=== PATIENT | male | born 2005 | race Caucasian/White ===

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

== ENCOUNTER 2023-06-14 15:29 | Emergency (ER) | payer MEDICAID, SELFPAY ==
[2022-06-30 16:34] VITALS: BP 117/76; BMI 25.9
--- NOTE | 2023-06-14 15:34 | XRR_ITS ---
PROCEDURE INFORMATION: Exam: XR Left Foot Exam date and time: 06/14/2023 4:06 PM Age: 17 years old Clinical indication: Pain; Foot; Left TECHNIQUE: Imaging protocol: Radiologic exam of the left foot. Views: 3 or more views. COMPARISON: No relevant prior studies available. FINDINGS: Bones/joints: No fracture or other acute abnormality. Joint spaces are normal. There is a rather prominent plantar arch. Soft tissues: Normal. XR/XR foot LT min 3V* [id number] IMPRESSION: No acute findings.
[2023-06-14 16:11] VITALS: BP 135/85; PULSE 71; RESP 18; TEMP 36.9; O2SAT 97; BMI 24.3
--- NOTE | 2023-06-14 16:42 | W.ED.LOWEXIN ---
HPI - Extremity Injury (Lower) General: Chief Complaint: Extremity Injury, Lower Stated Complaint: Left Foot injury Time Seen by Provider: 06/14/23 16:35 Source: patient Mode of arrival: ambulatory Limitations: no limitations History of Present Illness: Patient is a 17-year-old male presents to ED today for evaluation of left foot injury that he sustained yesterday after he was chasing his dog through the yard and on gravel. He states he is not sure exactly how he injured it but he is having pain throughout the plantar medial aspect of the foot. He is ambulatory here without assistance. He does report a small wound/cut near his great toe. Tetanus is up-to-date. No other injuries or complaints at this time. MD complaint: foot injury Onset (ago): day(s) (yesterday) Injury: Left: foot Place: home Severity: moderate Relieving factors: immobilization Exacerbating factors: weight bearing Context: running Associated symptoms: Reports no associated symptoms Other symptoms: none Review of Systems Musc: Reports: extremity pain (L foot); Denies: extremity swelling, joint pain or joint swelling Neuro: Denies: numbness in extremities or sensory changes PFSH ED PFSH: Medical History Major depressive disorder, single episode, moderate Housing instability, currently housed, at risk for homelessness Generalized anxiety disorder Psychiatric care Family History Grandmother Cancer unknown Other ADHD Generalized anxiety disorder MDD (major depressive disorder), recurrent episode, severe Denies family history of Diabetes CAD (coronary artery disease) Clotting disorder Dementia Hyperlipidemia Psychiatric illness Chronic kidney disease (CKD) Anesthesia complication Bleeding disorder Lung disease Hypertension Stroke Social History Smoking and tobacco/nicotine status: never used tobacco/nicotine Second hand smoke exposure: Yes Alcohol intake: never Substance/Drug Use: never Adopted: No Caregiver/support person: No Lives independently: Yes Household members: none Housing: Manufactured/Mobile home Marital status: Single Number of children: 0 Highest education level completed: 9th Grade Education level details: wanting to obtain GED service: No Current occupational status: unemployed Current occupation: currently searching for employment Current occupational exposures/hazards: No Pets and animals: No Leisure activites: reading and other Leisure activities details: play on phone Do you think of yourself as: Straight/Heterosexual Current gender identity: Male Yue/Mosque: None Agree to transfusion: Yes Physical Exam Const: COMMON NORMALS: no acute distress, patient oriented x3, no limitations, alert and well nourished Extremity: COMMON NORMALS: full ROM, capillary refill normal, no clubbing, cyanosis or edema, no calf tenderness and no pedal edema GENERAL: Yes normal exam except as noted LEFT LOWER EXTREMITY: Yes foot & digits Left foot and digits: Yes inspection (feet are very dirty in appearance), Yes palpation (TTP medial foot and heel), Yes ROM (normal) and Yes neurovascular exam (normal) OTHER: small cuts vs chronic cracks to plantar aspect of foot; all very superficial; small skin flap/avulsion to distal great toe that does not require repair; no obvious bony tenderness or deformity Neuro: COMMON NORMALS: patient oriented x3, moves all extremities, no focal motor deficits and no sensory deficits noted SENSORIUM/ORIENTATION: Yes alert Course Vital Signs: Vital signs: Vital Signs Temperature 98.4 F 06/14/23 16:11 Pulse Rate 71 06/14/23 16:11 Respiratory Rate 18 06/14/23 16:11 Blood Pressure 135/85 06/14/23 16:11 Pulse Oximetry 97 06/14/23 16:11 Oxygen Delivery Me thod Room Air 06/14/23 16:11 MDM - Extremity Injury (Lower) Medical Decision Making XR negative for bony injury or foreign body. Recommend thorough cleansing of the foot and monitoring for signs of infection. He is requesting crutches which will be provided. Return ED precautions given. Otherwise he can follow-up with primary care in 1 to 2 weeks if symptoms do not seem to be improving. Lab Data Radiology Impressions Foot X-Ray 06/14/23 15:34 IMPRESSION: No acute findings. All radiology interpretation(s) finalized by discharge Discharge Plan Discharge Patient Disposition: Home Clinical Impression: Injury of foot, left Qualifiers: Encounter type: initial encounter Qualified Code(s): S99.922A - Unspecified injury of left foot, initial encounter Condition: Stable Prescriptions: No Action trazodone 100 mg tablet 100 mg PO .HS 30 Days Qty: 30 1RF quetiapine 50 mg tablet extended release 24 hr 100 mg PO BEDTIME 30 Days Qty: 60 1RF hydroxyzine pamoate 25 mg capsule 50 mg PO Q6H PRN (Reason: Anxiety) 30 Days Qty: 120 1RF fluoxetine 20 mg capsule 20 mg PO DAILY 30 Days Qty: 30 1RF bupropion HCl [Wellbutrin XL] 300 mg tablet extended release 24 hr 300 mg PO QAM 30 Days Qty: 30 1RF bupropion HCl 150 mg tablet extended release 24 hr 150 mg PO DAILY 30 Days Qty: 30 1RF Rx Instructions: Take with 300 mg tab for 450 mg daily total methylphenidate HCl 10 mg tablet 10 mg PO TID 30 Days Qty: 90 0RF Discharge Orders: Discharge ED (Routine); Ordered 06/14/23 Ordered By: Sarah Duvall Activity Restrictions/Additional Instructions: As we discussed you may begin soaking the foot in warm soapy water to help clean and irrigate any small cuts. Your x-ray was negative for acute fracture or foreign bodies. You have been given a set of crutches to help with weightbearing. You may ice and elevate the extremity. You may take [id number] analgesics such as Motrin or Tylenol as needed for pain. Coding Level of Care Code ED Community Planning Technician for Yessenia Pettit
== END 2023-06-14 16:57 | disposition home or self-care (01) ==
PROVIDERS: Emergency Provider Physician Assistant
DX: S91.312A Laceration without foreign body, left foot, initial encounter (principal); Z77.22 Contact with and (suspected) exposure to environmental tobacco smoke (acute) (chronic); X58.XXXA Exposure to other specified factors, initial encounter
CPT/HCPCS: 73630; 99283; E0114

== ENCOUNTER 2023-07-13 06:49 | Emergency (ER) | payer MEDICAID, SELFPAY ==
[2022-06-30 16:34] VITALS: BP 117/76; BMI 25.9
--- NOTE | 2023-07-13 06:57 | XRR_ITS ---
PROCEDURE INFORMATION: Exam: XR Left Hand Exam date and time: 07/13/2023 7:07 AM Age: 17 years old Clinical indication: Injury or trauma; Blunt trauma (contusions or hematomas); Left; Injury details: Punched a wall. Swelling to hand TECHNIQUE: Imaging protocol: Radiologic exam of the left hand. Views: 3 or more views. COMPARISON: No relevant prior studies available. FINDINGS: Bones/joints: Suggestion of recent, mildly displaced hamate body fracture. Soft tissues: Suggestion of mild dorsal wrist soft tissue swelling. XR/XR hand LT min 3V* [id number] IMPRESSION: Evidence of recent mildly displaced hamate body
[2023-07-13 07:03] VITALS: BP 140/84; PULSE 70; RESP 16; TEMP 36.4; O2SAT 96; BMI 25.8
--- NOTE | 2023-07-13 08:04 | ED_ITS ---
HPI - Extremity Problem General: Chief complaint: Extremity Injury, Upper Stated complaint: left hand pain Time Seen by Provider: 07/13/23 06:56 Source: patient Mode of arrival: ambulatory History of Present Illness: 17-year-old male who punched a wall yest erday and has pain and swelling in his left hand since. No other injury. No abrasions no lacerations. MD Complaint: extremity pain and extremity swelling Onset (ago): day(s) (1) Pain Consistency: constant Location: left Radiation: distal Relieving factors: elevation Exacerbating factors: range of motion and palpation Associated symptoms: Deny chest pain, fever(s) or rash Review of Systems Const: Denies: fever(s) or chills Card: Denies: chest pain Resp: Denies: dyspnea GI: Denies: abdominal pain : Denies: dysuria, urinary frequency or urinary urgency Musc: Denies: neck pain or back pain Skin/Breast: Denies: rash PFSH ED PFSH: Medical History Major depressive disorder, single episode, moderate Housing instability, currently housed, at risk for homelessness Generalized anxiety disorder Psychiatric care Family History Grandmother Cancer unknown Other ADHD Generalized anxiety disorder MDD (major depressive disorder), recurrent episode, severe Denies family history of Diabetes CAD (coronary artery disease) Clotting disorder Dementia Hyperlipidemia Psychiatric illness Chronic kidney disease (CKD) Anesthesia complication Bleeding disorder Lung disease Hypertension Stroke Social History Smoking and tobacco/nicotine status: never used tobacco/nicotine Second hand smoke exposure: Yes Alcohol intake: never Substance/Drug Use: never Adopted: No Caregiver/support person: No Lives independently: Yes Household members: none Housing: Manufactured/Mobile home Marital status: Single Number of children: 0 Highest education level completed: 9th Grade Education level details: wanting to obtain GED service: No Current occupational status: unemployed Current occupation: currently searching for employment Current occupational exposures/hazards: No Pets and animals: No Leisure activites: reading and other Leisure activities details: play on phone Do you think of yourself as: Straight/Heterosexual Current gender identity: Male Yue/Christianity: None Agree to transfusion: Yes Physical Exam Const: GENERAL APPEARANCE: cooperative and comfortable ORIENTATION/CONSCIOUSNESS: Yes awake, Yes oriented to person, Yes oriented to place and Yes oriented to time HENMT: COMMON NORMALS: normocephalic, atraumatic and hearing grossly normal bilaterally HEAD & SCALP: normocephalic and atraumatic Resp: COMMON NORMALS: normal respiratory effort, No retractions, No use of accessory muscles and clear to auscultation bilaterally AUSCULTATION: clear to auscultation bilaterally Cardio: COMMON NORMALS: regular rate, regular rhythm and No murmurs present (Cardio) RATE: regular rate RHYTHM: regular rhythm Extremity: COMMON NORMALS: normal to inspection, capillary refill normal, no clubbing, cyanosis or edema, no calf tenderness and no pedal edema OTHER: Moderate swelling of the hand in the region of the carpal joints. No pain at the wrist with palpation of the all distal ulnar styloid or distal radius. No pain in the anatomical snuffbox. Neuro: SENSORIUM/ORIENTATION: Yes oriented to person, Yes oriented to place and Yes oriented to time Skin: COMMON NORMALS: no rashes or lesions noted GENERAL SKIN EXAM: no rashes or lesions noted Course Vital Signs: Vital signs: Vital Signs Temperature 97.5 F L 07/13/23 07:03 Pulse Rate 70 07/13/23 07:03 Respiratory Rate 16 07/13/23 07:03 Blood Pressure 140/84 07/13/23 07:03 Pulse Oximetry 96 07/13/23 07:03 Oxygen Delivery Me thod Room Air 07/13/23 07:03 MDM - Extremity (Nontraumatic) Medical Decision Making X-ray read as evidence of mildly displaced hamate body fracture. Placed in a splint and have patient follow-up with orthopedics Medical Records I reviewed the patient's medical records. Lab Data I reviewed the patient's lab results. Radiology Impressions Hand X-Ray 07/13/23 06:57 IMPRESSION: Evidence of recent mildly displaced hamate body All radiology interpretation(s) finalized by discharge Discharge Plan Discharge Patient Disposition: Home Clinical Impression: Fracture of hamate bone of left wrist Condition: Stable Prescriptions: New diclofenac sodium 75 mg tablet,delayed release (DR/EC) 75 mg PO Q12H PRN (Reason: pain) Qty: 20 0RF No Action trazodone 100 mg tablet 100 mg PO .HS 30 Days Qty: 30 1RF quetiapine 50 mg tablet extended release 24 hr 100 mg PO BEDTIME 30 Days Qty: 60 1RF hydroxyzine pamoate 25 mg capsule 50 mg PO Q6H PRN (Reason: Anxiety) 30 Days Qty: 120 1RF fluoxetine 20 mg capsule 20 mg PO DAILY 30 Days Qty: 30 1RF bupropion HCl [Wellbutrin XL] 300 mg tablet extended release 24 hr 300 mg PO QAM 30 Days Qty: 30 1RF bupropion HCl 150 mg tablet extended release 24 hr 150 mg PO DAILY 30 Days Qty: 30 1RF Rx Instructions: Take with 300 mg tab for 450 mg daily total methylphenidate HCl 10 mg tablet 10 mg PO TID 30 Days Qty: 90 0RF Discharge Orders: Discharge ED (Routine); Ordered 07/13/23 Ordered By: Meliton Fuller Discharge Diet: Usual diet Discharge Activity: Limit activity as instructed Patient Instructions: Opioid Safety, Pain Management Activity Restrictions/Additional Instructions: Thank you for choosing [facility] for your healthcare needs today. Please realize this is an emergency room and that we are providing you with a medical screening exam and this may not be complete and all inclusive of all the testing and or work up that you may need to determine your ailment or severity of your illness. It is very important that you follow up as instructed or that you return to the Emergency Department should you have concerns or if your condition changes or worsens in any way. You were seen today for complaints of left wrist pain after punching a wall. There was a questionable fracture of the small bone in your wrist called the hamate bone. Recommend no use of the left hand and remain in the splint until you follow-up with orthopedics. Case management will make arrangements for follow-up with the orthopedic clinic. Ice and elevate the hand for comfort you can use diclofenac as needed for pain Coding Level of Care Code ED Airport Maintenance Laborer for Yessenia Pettit
[2023-07-13] MEDS: HYDROcodone-acetaminophen 5-325 mg Tablet 1 TAB PO (08:39)
--- NOTE | 2023-07-14 07:59 | DCPLANNER ---
Message sent to Ortho for a follow up appointment LT wrist hamate fracture
== END 2023-07-13 09:02 | disposition home or self-care (01) ==
PROVIDERS: Emergency Provider Family Medicine
DX: S62.142A Displaced fracture of body of hamate [unciform] bone, left wrist, initial encounter for closed fracture (principal); Z77.22 Contact with and (suspected) exposure to environmental tobacco smoke (acute) (chronic); W22.09XA Striking against other stationary object, initial encounter
CPT/HCPCS: 29125; 73130; 99283

== ENCOUNTER 2024-03-18 19:12 | Emergency (ER) | payer SELFPAY ==
[2022-06-30 16:34] VITALS: BP 117/76; BMI 25.9
--- NOTE | 2024-03-18 19:14 | XRR_ITS ---
PROCEDURE INFORMATION: Exam: XR Left Wrist Exam date and time: 03/18/2024 7:29 PM Age: 18 years old Clinical indication: Injury or trauma; Fall; Blunt trauma (contusions or hematomas); Wrist; Left TECHNIQUE: Imaging protocol: Radiologic exam of the left wrist. Views: 3 or more views. COMPARISON: CR ([facility], ) 03/18/2024 7:29 PM FINDINGS: Bones/joints: No evidence of fracture or subluxation. Radiocarpal articulation and carpal rows are grossly intact. Soft tissues: Mild soft tissue edema. XR/XR wrist LT min 3V* [id number] IMPRESSION: 1. No evidence of fracture or subluxation.
--- NOTE | 2024-03-18 19:14 | XRR_ITS ---
PROCEDURE INFORMATION: Exam: XR Left Elbow Exam date and time: 03/18/2024 7:29 PM Age: 18 years old Clinical indication: Injury or trauma; Fall; Blunt trauma (contusions or hematomas); Elbow; Left TECHNIQUE: Imaging protocol: Radiologic exam of the left elbow. Views: 3 or more views. COMPARISON: CR ([facility], ) 03/18/2024 7:29 PM FINDINGS: Bones/joints: No evidence of fracture or subluxation. No evidence of joint effusion. Radiocapitellar alignment is maintained. Soft tissues: Grossly unremarkable. XR/XR elbow LT min 3V* [id number] IMPRESSION: 1. No evidence of fracture or subluxation.
[2024-03-18 19:17] VITALS: BP 125/82; PULSE 80; RESP 17; TEMP 36.9; O2SAT 97; BMI 31.5
[2024-03-18] MEDS: ketorolac 60 mg/2 mL INJ IM (19:36)
--- NOTE | 2024-03-18 19:39 | W.ED.FALL ---
HPI - Fall General: Chief Complaint: Fall Stated Complaint: Left Wrist and Elbow Injury Time Seen by Provider: 03/18/24 19:22 History of Present Illness: Johnathon is a [id number] 18-year-old male that presents to the emergency department with complaints of left wrist and left elbow pain. Patient reports last night at about 7 PM he tripped. As he was falling he reached out for a metal chair but ended up striking his wrist across it and then landing on his left elbow. Patient denies striking his head or loss of consciousness. He developed left wrist pain with range of motion and elbow stiffness. He has no open wounds. He is neurovascularly intact. He has no prior injuries to this extremity. Related Data Previous Rx's Medication Instructions Recorded bupropion HCl 150 mg 24 hr tablet, 150 mg PO DAILY 30 days #30 tabs 12/03/22 extended release bupropion HCl 300 mg 24 hr tablet, 300 mg PO QAM 30 days #30 tabs 12/03/22 extended release (Wellbutrin XL) fluoxetine 20 mg capsule 20 mg PO DAILY 30 days #30 caps 12/03/22 hydroxyzine pamoate 25 mg capsule 50 mg (2 x 25 mg) PO Q6H PRN 12/03/22 Anxiety 30 days #120 caps methylphenidate HCl 10 mg tablet 10 mg PO TID 30 days #90 tabs 12/03/22 quetiapine 50 mg tablet,extended 100 mg (2 x 50 mg) PO BEDTIME 30 12/03/22 release 24 hr days #60 tabs trazodone 100 mg tablet 100 mg PO .HS 30 days #30 tabs 12/03/22 diclofenac sodium 75 mg 75 mg PO Q12H PRN pain #20 tabs 07/13/23 tablet,delayed release Allergies Allergy/AdvReac Type Severity Reaction Status Date / Time No Known Allergies Allergy Verified 03/18/24 19:21 Review of Systems General: Reports: 10 or more systems reviewed and unremarkable except in HPI and below PFSH ED PFSH: Medical History Major depressive disorder, single episode, moderate Housing instability, currently housed, at risk for homelessness Generalized anxiety disorder Psychiatric care Family History Grandmother Cancer unknown Other ADHD Generalized anxiety disorder MDD (major depressive disorder), recurrent episode, severe Denies family history of Diabetes CAD (coronary artery disease) Clotting disorder Dementia Hyperlipidemia Psychiatric illness Chronic kidney disease (CKD) Anesthesia complication Bleeding disorder Lung disease Hypertension Stroke Social History Smoking and tobacco/nicotine status: never used tobacco/nicotine Second hand smoke exposure: Yes Alcohol intake: never Substance/Drug Use: never Adopted: No Caregiver/support person: No Lives independently: Yes Household members: none Housing: Manufactured/Mobile home Marital status: Single Number of children: 0 Highest education level completed: 9th Grade Education level details: wanting to obtain GED service: No Current occupational status: unemployed Current occupation: currently searching for employment Current occupational exposures/hazards: No Pets and animals: No Leisure activites: reading and other Leisure activities details: play on phone Do you think of yourself as: Straight/Heterosexual Current gender identity: Male Yue/Anabaptism: None Agree to transfusion: Yes Physical Exam Const: COMMON NORMALS: no acute distress, patient oriented x3 and alert GENERAL APPEARANCE: cooperative ORIENTATION/CONSCIOUSNESS: Yes awake Neck/C-Spine: COMMON NORMALS: full ROM GENERAL: Yes normal visual inspection Resp: COMMON NORMALS: normal respiratory effort, No retractions and No use of accessory muscles EFFORT & INSPECTION: Yes able to speak in complete sentences and Yes symmetric chest movement Cardio: COMMON NORMALS: regular rate and Peripheral pulses 2+ throughout RATE: regular rate PERIPHERAL PULSES: Peripheral pulses 2+ throughout Extremity: COMMON NORMALS: normal to inspection NARRATIVE EXTREMITY EXAM: Uubd-[id number]-apoaoyht male. Patient reports pain at the wrist and elbow. Patient has full active range of motion of the left elbow although pain limits. He is able to flex and extend the wrist and range of motion the wrist. Patient is able to give a thumbs up, make an okay sign, cross fingers, abduct fingers against resistance, make a fist. Sensations intact throughout all distributions He has cap refill less than 3 seconds GENERAL: Yes normal exam except as noted Neuro: COMMON NORMALS: patient oriented x3 SENSORIUM/ORIENTATION: Yes alert CRANIAL NERVES: Yes CN normal except as noted Psych: COMMON NORMALS: mental status grossly normal, cooperative and activity/motor behavior normal Skin: COMMON NORMALS: no rashes or lesions noted, no wounds and turgor normal GENERAL SKIN EXAM: no rashes or lesions noted and turgor normal Course Vital Signs: Vital signs: Vital Signs Temperature 98.4 F 03/18/24 19:17 Pulse Rate 80 03/18/24 19:17 Respiratory Rate 17 03/18/24 19:17 Blood Pressure 125/82 03/18/24 19:17 Pulse Oximetry 97 03/18/24 19:17 Oxygen Delivery Me thod Room Air 03/18/24 19:17 MDM - Fall Medical Decision Making Patient is a 18-year-old [id number] male who presents to the emergency department with left wrist and elbow pain. Patient with complaint a XR of the left wrist and elbow to rule out fracture, fracture dislocation. Pain was treated with Toradol. After Toradol injection, patient's exam improved greatly. He reports that he is feeling much better. Patient's XR imaging of the elbow and the wrist revealed no acute fractures. I reviewed these findings with the patient. Unfortunately, the radiologist has not been able to read the imaging as of yet. I told the patient we will keep an eye out for the radiologist read and if there is read contradicted by interpretation we would reach out to him. Patient is agreeable with this plan. I did offer a prescription of Toradol or naproxen but he would prefer to use [id number] medications. XR interpretation done by ED provider, pending radiology final review Discharge Plan Discharge Patient Disposition: Home Clinical Impression: Acute wrist pain, Elbow pain, left Condition: Stable Prescriptions: No Action trazodone 100 mg tablet 100 mg PO .HS 30 Days Qty: 30 1RF quetiapine 50 mg tablet extended release 24 hr 100 mg PO BEDTIME 30 Days Qty: 60 1RF hydroxyzine pamoate 25 mg capsule 50 mg PO Q6H PRN (Reason: Anxiety) 30 Days Qty: 120 1RF fluoxetine 20 mg capsule 20 mg PO DAILY 30 Days Qty: 30 1RF bupropion HCl [Wellbutrin XL] 300 mg tablet extended release 24 hr 300 mg PO QAM 30 Days Qty: 30 1RF bupropion HCl 150 mg tablet extended release 24 hr 150 mg PO DAILY 30 Days Qty: 30 1RF Rx Instructions: Take with 300 mg tab for 450 mg daily total methylphenidate HCl 10 mg tablet 10 mg PO TID 30 Days Qty: 90 0RF diclofenac sodium 75 mg tablet,delayed release (DR/EC) 75 mg PO Q12H PRN (Reason: pain) Qty: 20 0RF Discharge Orders: Discharge ED (Routine); Ordered 03/18/24 Ordered By: Ursula Mays Referrals: Juan Manzanares MD [Physician] - Discharge Diet: Advance as tolerated Discharge Activity: Resume usual activity Patient Instructions: Elbow Sprain (ED), Wrist Sprain (ED), Opioid Safety, Pain Management Activity Restrictions/Additional Instructions: If you are not better in 3 to 5 days, follow-up with Dr. Manzanares your primary care provider Coding Level of Care Code ED Artificial Snow Making Machine Operator for Yessenia Pettit
== END 2024-03-18 20:43 | disposition home or self-care (01) ==
PROVIDERS: Emergency Provider Nurse Practitioner
DX: M25.532 Pain in left wrist (principal); M25.522 Pain in left elbow
CPT/HCPCS: 73080; 73110; 96372; 99284; J1885

== ENCOUNTER 2024-05-29 10:46 | Emergency (ER) | payer SELFPAY ==
[2022-06-30 16:34] VITALS: BP 117/76; BMI 25.9
[2024-05-29 10:55] VITALS: BP 120/74; PULSE 72; RESP 15; TEMP 36.7; O2SAT 99; BMI 31.4
--- NOTE | 2024-05-29 11:37 | ED_ITS ---
HPI - General Adult General: Chief complaint: Upper Respiratory Infection Stated complaint: SOB/throat swollen Time Seen by Provider: 05/29/24 11:36 Source: patient Mode of arrival: ambulatory Limitations: no limitations History of Present Illness: Patient is a 18-year-old male presents to ED today with a complaint of a sore throat over the past 5 to 6 days. Patient has not had any documented fevers. He is able to control his saliva and swallow liquids. He has no other URI-like symptoms. Has not noticed any neck swelling. Onset (ago): day(s) Location: mouth (throat) Severity: moderate Pain Consistency: constant Relieving factors: none Exacerbating factors: other (swallowing) Associated symptoms: Reports no associated symptoms; Deny chest pain, dyspnea, headache(s), malaise, nausea, rash or vomiting Treatments prior to arrival: none Related Data Previous Rx's Medication Instructions Recorded bupropion HCl 150 mg 24 hr tablet, 150 mg PO DAILY 30 days #30 tabs 12/03/22 extended release bupropion HCl 300 mg 24 hr tablet, 300 mg PO QAM 30 days #30 tabs 12/03/22 extended release (Wellbutrin XL) fluoxetine 20 mg capsule 20 mg PO DAILY 30 days #30 caps 12/03/22 hydroxyzine pamoate 25 mg capsule 50 mg (2 x 25 mg) PO Q6H PRN 12/03/22 Anxiety 30 days #120 caps methylphenidate HCl 10 mg tablet 10 mg PO TID 30 days #90 tabs 12/03/22 quetiapine 50 mg tablet,extended 100 mg (2 x 50 mg) PO BEDTIME 30 12/03/22 release 24 hr days #60 tabs trazodone 100 mg tablet 100 mg PO .HS 30 days #30 tabs 12/03/22 diclofenac sodium 75 mg 75 mg PO Q12H PRN pain #20 tabs 07/13/23 tablet,delayed release Allergies Allergy/AdvReac Type Severity Reaction Status Date / Time No Known Allergies Allergy Verified 05/29/24 10:58 Review of Systems Const: Denies: fever(s), chills, body aches, fatigue or malaise ENMT: Reports: throat pain and odynophagia; Denies: oral sores, dental pain, ear or mastoid pain, nasal discharge, nasal congestion or sinus pain Card: Denies: chest pain Resp: Denies: dyspnea GI: Denies: nausea or vomiting Musc: Denies: neck pain, back pain, extremity pain, extremity swelling, joint pain or joint swelling Skin/Breast: Denies: rash Neuro: Denies: headache(s), numbness in extremities, weakness in extremities, sensory changes or dizziness PFS ED PFSH: Medical History Major depressive disorder, single episode, moderate Housing instability, currently housed, at risk for homelessness Generalized anxiety disorder Psychiatric care Family History Grandmother Cancer unknown Other ADHD Generalized anxiety disorder MDD (major depressive disorder), recurrent episode, severe Denies family history of Diabetes CAD (coronary artery disease) Clotting disorder Dementia Hyperlipidemia Psychiatric illness Chronic kidney disease (CKD) Anesthesia complication Bleeding disorder Lung disease Hypertension Stroke Social History Smoking and tobacco/nicotine status: never used tobacco/nicotine Second hand smoke exposure: Yes Alcohol intake: never Substance/Drug Use: never Adopted: No Caregiver/support person: No Lives independently: Yes Household members: none Housing: Manufactured/Mobile home Marital status: Single Number of children: 0 Highest education level completed: 9th Grade Education level details: wanting to obtain GED service: No Current occupational status: unemployed Current occupation: currently searching for employment Current occupational exposures/hazards: No Pets and animals: No Leisure activites: reading and other Leisure activities details: play on phone Do you think of yourself as: Straight/Heterosexual Current gender identity: Male Yue/Caodaism: None Agree to transfusion: Yes Physical Exam Const: COMMON NORMALS: no acute distress, patient oriented x3, no limitations, alert and well nourished GENERAL APPEARANCE: cooperative HENMT: FACE & SINUS: normal facial exam, sinuses nontender and face symmetric MOUTH: Normal oral and palatal mucosa present and lip normal THROAT: abnormal tonsil bilateral erythema and exudates and posterior oropharynx abnormal erythema Eye: GENERAL EYE: appearance normal, both eyes and all related structures Neck/C-Spine: GENERAL: No anterior neck swelling, Yes lymphadenopathy and No submandibular swelling Resp: COMMON NORMALS: normal respiratory effort and clear to auscultation bilaterally AUSCULTATION: clear to auscultation bilaterally Cardio: COMMON NORMALS: regular rate and regular rhythm RATE: regular rate RHYTHM: regular rhythm GI: COMMON NORMALS: Normal to inspection, nondistended, normoactive bowel sounds present, non-tender and No hepatosplenomegaly present PALPATION: Yes No hepatosplenomegaly present Extremity: GENERAL: Yes normal exam except as noted Neuro: COMMON NORMALS: patient oriented x3 SENSORIUM/ORIENTATION: Yes alert Skin: COMMON NORMALS: no rashes or lesions noted GENERAL SKIN EXAM: no rashes or lesions noted Course Vital Signs: Vital signs: Vital Signs Temperature 98.1 F 05/29/24 10:55 Pulse Rate 72 05/29/24 10:55 Respiratory Rate 15 05/29/24 10:55 Blood Pressure 120/74 05/29/24 10:55 Pulse Oximetry 99 05/29/24 10:55 Oxygen Delivery Me thod Room Air 05/29/24 10:55 MDM - General Adult Medical Decision Making Patient here for exudative tonsillitis/pharyngitis. Strep is negative and ahead and treated with IM Bicillin and Dexamethasone. No evidence for RADIO INTERFERENCE INVESTIGATOR/retropharyngeal abscess, airway compromise. He will be allowed discharge with return precautions. Medical Records I reviewed the patient's medical records. Lab Data I reviewed the patient's lab results. Laboratory Results Group A Strep Rapid Negative (Negative) 05/29/24 11:26 No radiology studies performed this visit Discharge Plan Discharge Patient Disposition: Home Clinical Impression: Exudative tonsillitis Condition: Stable Prescriptions: No Action trazodone 100 mg tablet 100 mg PO .HS 30 Days Qty: 30 1RF quetiapine 50 mg tablet extended release 24 hr 100 mg PO BEDTIME 30 Days Qty: 60 1RF hydroxyzine pamoate 25 mg capsule 50 mg PO Q6H PRN (Reason: Anxiety) 30 Days Qty: 120 1RF fluoxetine 20 mg capsule 20 mg PO DAILY 30 Days Qty: 30 1RF bupropion HCl [Wellbutrin XL] 300 mg tablet extended release 24 hr 300 mg PO QAM 30 Days Qty: 30 1RF bupropion HCl 150 mg tablet extended release 24 hr 150 mg PO DAILY 30 Days Qty: 30 1RF Rx Instructions: Take with 300 mg tab for 450 mg daily total methylphenidate HCl 10 mg tablet 10 mg PO TID 30 Days Qty: 90 0RF diclofenac sodium 75 mg tablet,delayed release (/EC) 75 mg PO Q12H PRN (Reason: pain) Qty: 20 0RF Discharge Orders: Discharge ED (Routine); Ordered 05/29/24 Ordered By: Sarah Duvall Patient Instructions: Tonsillitis (ED) Activity Restrictions/Additional Instructions: As we discussed you were given IM steroids and antibiotics here. Monitor symptoms closely. You need to return to the emergency department for difficulty or inability to swallow, control your saliva/secretions, any trouble breathing, or any other concerns you may have. Coding Level of Care Code ED Analysis Tester for Yessenia Pettit
[2024-05-29 11:52] LABS: Rapid Strep A Test Negative (Negative)
[2024-05-29] MEDS: dexamethasone 10 mg/mL INJ IM (11:56)
== END 2024-05-29 12:35 | disposition home or self-care (01) ==
PROVIDERS: Emergency Provider Physician Assistant
DX: J03.80 Acute tonsillitis due to other specified organisms (principal)
CPT/HCPCS: 87081; 87880; 96372; 99284; J1100

== ENCOUNTER 2025-03-25 10:44 | Emergency (ER) | payer SELFPAY ==
[2022-06-30 16:34] VITALS: BP 117/76; BMI 25.9
--- OUTSIDE RECORDS SUMMARY | 2025-03-25 10:52 | XMS_ITS | Clinical Summary ---
Author Organization [facility] Address [address] [place] [address] Care Team Providers Care Water Team Leader Name Role Phone Essie Murcia Primary Care Provider Allergies No known active allergies Medications busPIRone (BUSPAR) 5 mg tabletIndicatio ns:Anxiety Take 1 Tablet (5 mg) by mouth 2 times daily. 60 Tablet 2 8 Active Clindamycin-Derik zoyl Peroxide (DUAC) 1.2 %(1 % base) -5 % GelIndications: Acne, unspecified acne type by See Admin Instructions route daily Apply to face daily for acne.. 45 Gram 1 9 Active melatonin 5 mg tablet, IR & ER, biphasicIndicat ions:Insomnia, unspecified type Take 5 mg by mouth nightly as needed for Other (See Comment) (insomnia). 30 Each 6 9 Active Active Problems Problem Noted Date Diagnosed Date Child in foster care 12/10/2017 Anxiety 12/10/2017 ADD (attention deficit disorder) 07/02/2017 Immunizations Immunization Administration Dates Next Due (ACTHIB/HIBERIX)(2 MOS-5 YRS /6 WKS-4 YRS) HAEMOPHILUS INFLUENZAE TYPE B VACCINE (HIB), PRP-T CONJUGATE, 4 DOSE, 0.5 ML IM 05/28/2005,08/04/2004,05/05/2004 (ADACEL/BOOSTRIX)(10 YR UP) TDAP VACCINE, 0.5ML, IM 07/02/2017 (GARDASIL 9)(9-45 YRS) HUMAN PAPILLOMAVIRUS VACCINE, TYPES 6, 11, 16, 18, 31, 33, 45, 52, 58, NONAVALENT (9VHPV), 2 OR 3 DOSE, IM 03/16/2019,01/06/2019 (HAVRIX/VAQTA)(12 MO-18 YRS) HEPATITIS A VACCINE 0.5 ML PED/ADOL 2 DOSE, IM 01/06/2019,01/21/2018 (INFANRIX)(6 WKS-6 YRS) DIPT HERIA, TETANUS TOXOIDS, AND ACCELLULAR PERTUSSIS VACCINE (DTAP), 0.5 ML IM 05/28/2005 (M-M-R II/PRIORIX)(12 MO UP) MEASLES, MUMPS AND RUBELLA VIRUS VACCINE, 0.5 ML IM/SUBCUT 07/02/2017,05/28/2005 (PEDIARIX)(6 WKS-6 YRS) DIPT HERIA, TETANUS TOXOIDS, ACELLULAR PERTUSSIS, HEPATITIS B, AND INACTIVATED POLIOVIRUS VACCINE ([id number]), 0.5ML, IM 08/04/2004,05/05/2004,02/11/2004 (VARIVAX)(12 MOS UP)VARICELL A VIRUS VACCINE (PF) 0.5 ML, SUB CUT 05/28/2005 Hepatitis B Vaccine 2003 Influenza Vaccine Quad Split 3+ Yrs Im 8 Meningococcal A Conjugate Vaccine IM 07/02/2017 Pneumococcal 7-valent conjugate vaccine IM 08/04,05/05/2004 Family History Medical History Relation Name Comments Healthy Father Healthy Mother Relation Name Status Comments Father Alive Mother Alive Social History Tobacco Use Types Packs/Day Years Used Date Smoking Tobacco: Never Smokeless Tobacco: Never Alcohol Use Standard Drinks/Week Comments No 0 (1 standard drink = 0.6 oz pur e alcohol) Sex and Gender Information Value Date Recorded Sex Assigned at Not on file Legal Sex Male 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 Gender Identity Not on file Sexual Orientation Not on file Last Filed Vital Signs Vital Sign Reading Time Taken Comments Blood Pressure 109/74 04/04/2019 3:08 PM WASHTUB WORKER HELPER Pulse 103 04/04/2019 3:08 PM WASHTUB WORKER HELPER Temperature 36.3 C (97.4 F) 04/04/2019 3:08 PM WASHTUB WORKER HELPER Respiratory Rate 18 01/06/2019 1:39 PM CDT Oxygen Saturation 95% 04/04/2019 3:08 PM WASHTUB WORKER HELPER Inhaled Oxygen Concentration - - Weight 64.1 kg (141 lb 6.4 oz) 04/04/2019 3:08 P M WASHTUB WORKER HELPER Height 172.7 cm (5' 8 ) 04/04/2019 3:08 PM WASHTUB WORKER HELPER Body Mass Index 21.5 04/04/2019 3:08 PM WASHTUB WORKER HELPER Plan of Treatment Health Maintenance Due Date Last Done Comments HPV VACCINES (3 - Male 3-dos e series) 07/07/2019 03/16/2019, 01/06/2019 INFLUENZA VACCINE (#1) 2024 01/21/2018 DTAP/TDAP/TD VACCINES (6 - T d or Tdap) 07/03/2027 07/02/2017, 05/28/2005, 08/04/2004, Additional history exists HEPATITIS B VACCINES Completed 08/04/2004, 05/05/2004, 02/11/2004, Additional history exists Insurance [employer] [facility] Member Subscriber Plan / Payer (Ef fective 2017-Present) Name:Johnathon Venegas Relation to Subscriber:Self Name:Johnathon Venegas Payer ID:[id number] (NAIC) Group ID:Not on file Type:Medicaid Managed Care Address: [place] [id number] [facility] [place] Care Teams Water Team Leader Relationship Specialty Start Date End Date Essie Murcia DO [address] [place] [id number] PCP - General Family Practice 07/02/17
--- OUTSIDE RECORDS SUMMARY | 2025-03-25 10:52 | XMS_ITS | Clinical Summary ---
Author Organization [facility] Address [address] [facility] Attn: Epic Prelude ADT [place] [address] Care Team Providers Care Chamber Magistrate Name Role Phone Essie Murcia DO Primary Care Provider Allergies No known active allergies Medications busPIRone (BUSPAR) 5 mg tabletIndicatio ns:Anxiety Take 1 Tablet (5 mg) by mouth 2 times daily. 60 Tablet 2 8 Active Clindamycin-Derik zoyl Peroxide 1.2 %(1 % base) -5 % GelIndications: [...] PERTUSSIS, HEPATITIS B, AND INACTIVATED POLIOVIRUS VACCINE ([id number]-HEB), 0.5ML, IM 08/04/2004,05/05/2004,02/11/2004 (VARIVAX)(12 MOS UP)VARICELL A [...] at Not on file Legal Sex Male 1:27 AM HOSPICE LIAISON Gender Identity Not on file Sexual Orientation Not on file Last Filed Vital Signs Vital Sign Reading Time Taken Comments Blood Pressure 109/74 04/04/2019 3:08 PM HOSPICE LIAISON Pulse 103 04/04/2019 3:08 PM HOSPICE LIAISON Temperature 36.3 C (97.4 F) 04/04/2019 3:08 PM HOSPICE LIAISON Respiratory Rate 18 01/06/2019 1:39 PM CDT Oxygen Saturation - - Inhaled Oxygen Concentration - - Weight 64.1 kg (141 lb 6.4 oz) 04/04/2019 3:08 P M HOSPICE LIAISON Height 172.7 cm (5' 8 ) 04/04/2019 3:08 PM HOSPICE LIAISON Body Mass Index 21.5 04/04/2019 3:08 PM HOSPICE LIAISON Plan of Treatment Health Maintenance Due Date Last Done Comments HPV VACCINES (3 - Male 3-dos e series) 07/07/2019 03/16/2019, 01/06/2019 INFLUENZA VACCINE (#1) 2024 01/21/2018 DTAP/TDAP/TD VACCINES (6 - T d or Tdap) 07/03/2027 07/02/2017, 05/28/2005, 08/04/2004, Additional history exists HEPATITIS B VACCINES Completed 08/04/2004, 05/05/2004, 02/11/2004, Additional history exists Care Teams Chamber Magistrate Relationship Specialty Start Date End Date Essie Murcia DO [address] [place] [address] PCP - General Family Practice 07/02/17
[2025-03-25 11:05] VITALS: BMI 31.9
[2025-03-25 11:08] VITALS: BP 112/72; PULSE 80; RESP 18; TEMP 36.8; O2SAT 95
--- NOTE | 2025-03-25 11:14 | ED_ITS ---
HPI - URI/Sore Throat General: Chief Complaint: Upper Respiratory Infection Stated Complaint: sore throat, hurts to swallow Time Seen by Provider: 03/25/25 11:05 Source: patient Mode of arrival: ambulatory Limitations: no limitations History of Present Illness: Patient is a 19-year-old male who presents to the emergency department complaining of sore throat for a week. Also notes a cough, states that his throat feels swollen and sometimes he feels like he cannot breathe. No fevers, no chills. No wheezing or chest pain. States that the pain is worse with swallowing, he has not been seen urgent care does not have a primary care provider. His vitals are stable at this time. MD elicited complaint: sore throat Onset (ago): week(s) Consistency: constant Severity: moderate Associated symptoms: Deny abdominal pain, chills, chest pain, diarrhea, ear or mastoid pain, fever(s), headache(s), nausea or vomiting Related Data Previous Rx's ?Medication ?Instructions ?Recorded bupropion HCl 150 mg 24 hr tablet, 150 mg PO DAILY 30 days #30 tabs 12/03/22 extended release bupropion HCl 300 mg 24 hr tablet, 300 mg PO QAM 30 da ys #30 tabs 12/03/22 extended release (Wellbutrin XL) fluoxetine 20 mg capsule 20 mg PO DAILY 30 days #30 c aps 12/03/22 hydroxyzine pamoate 25 mg capsule 50 mg (2 x 25 mg) PO Q6H PRN 12/03/22 Anxiety 30 days #120 caps methylphenidate HCl 10 mg tablet 10 mg PO TID 30 days #90 tabs 12/03/22 quetiapine 50 mg tablet,extended 100 mg (2 x 50 mg) PO BEDTIME 30 12/03/22 release 24 hr days #60 tabs trazodone 100 mg tablet 100 mg PO .HS 30 days #30 ta bs 12/03/22 diclofenac sodium 75 mg 75 mg PO Q12H PRN pain #20 t abs 07/13/23 tablet,delayed release prednisone 10 mg tablets in a dose 10 mg PO DIRECTE D #21 ea 03/25/25 pack Allergies Allergy/AdvReac Type Severity Reaction Status Date / Time No Known Allergies Allergy Verified 05/29/24 10:58 Review of Systems General: Reports: 10 or more systems reviewed and unremarkable except in HPI and below Const: Denies: fever(s), chills or fatigue Eyes: Denies: change in vision ENMT: Reports: throat pain, enlarged tonsils and odynophagia; Denies: ear or mastoid pain or nasal discharge Card: Denies: chest pain, palpitations, swelling of feet/ankles or lightheadedness Resp: Reports: dyspnea; Denies: productive cough or wheezing GI: Denies: abdominal pain, nausea, vomiting, diarrhea or constipation : Denies: flank pain, difficulty urinating, dysuria or urinary frequency Musc: Denies: neck pain, back pain or joint pain Skin/Breast: Denies: rash Neuro: Denies: headache(s), numbness in extremities or weakness in extremities PFSH ED PFSH: Medical History Major depressive disorder, single episode, moderate Housing instability, currently housed, at risk for homelessness Generalized anxiety disorder Family History Grandmother Cancer unknown Other ADHD Generalized anxiety disorder MDD (major depressive disorder), recurrent episode, severe Denies family history of Diabetes CAD (coronary artery disease) Clotting disorder Dementia Hyperlipidemia Psychiatric illness Chronic kidney disease (CKD) Anesthesia complication Bleeding disorder Lung disease Hypertension Stroke Social History Smoking and tobacco/nicotine status: never used tobacco/nicotine Second hand smoke exposure: Yes Alcohol intake: never Substance/Drug Use: never Adopted: No Caregiver/support person: No Lives independently: Yes Household members: none Housing: Manufactured/Mobile home Marital status: Single Number of children: 0 Highest education level completed: 9th Grade Education level details: wanting to obtain GED service: No Current occupational status: unemployed Current occupation: currently searching for employment Current occupational exposures/hazards: No Pets and animals: No Leisure activites: reading and other Leisure activities details: play on phone Do you think of yourself as: Straight/Heterosexual Current gender identity: Male Yue/Uatsdin: None Agree to transfusion: Yes Physical Exam Const: COMMON NORMALS: no acute distress and no limitations GENERAL APPEARANCE: cooperative, comfortable and well developed ORIENTATION/CONSC IOUSNESS: Yes awake HENMT: COMMON NORMALS: normocephalic, atraumatic and hearing grossly normal bilaterally HEAD & SCALP: normocephalic and atraumatic MOUTH: Normal oral and palatal mucosa present THROAT: uvula midline and posterior oropharynx abnormal edema and erythema Eye: COMMON NORMALS: Equal, round and reactive pupils present, EOMs intact bilaterally and conjunctivae normal CONJUNCTIVA: Yes conjunctivae normal PUPIL: Yes Equal, round and reactive pupils present Neck/C-Spine: COMMON NORMALS: full ROM, supple and no JVD Resp: COMMON NORMALS: normal respiratory effort, No retractions, No use of accessory muscles and clear to auscultation bilaterally AUSCULTATION: clear to auscultation bilaterally Cardio: COMMON NORMALS: no JVD, regular rate, regular rhythm, No clicks present (Cardio), No murmurs present (Cardio) and No rub (Cardio) RATE: regular rate RHYTHM: regular rhythm Extremity: COMMON NORMALS: normal to inspection, full ROM and capillary refill normal Skin: COMMON NORMALS: no rashes or lesions noted GENERAL SKIN EXAM: no rashes or lesions noted Course Vital Signs: Vital signs: Vital Signs Temperature 98.3 F 03/25/25 11:08 Pulse Rate 80 03/25/25 11:08 Respiratory Rate 18 03/25/25 11:08 Blood Pressure 112/72 03/25/25 11:08 Pulse Oximetry 95 03/25/25 11:08 Oxygen Delivery Me thod Room Air 03/25/25 11:08 MDM - URI/Sore Throat Medical Decision Making Patient presenting with sore throat and painful swallowing for the past week. Strep negative here. Clinically appearing well on exam and no respiratory distress. There is some redness and swelling to his posterior oropharynx this is likely a viral pharyngitis patient is informed that his sore throat may take 7 to 10 days to resolve and he will be called with culture positivity. Symptomatic treatment encouraged, he is told to return with any respiratory distress. Lab Data Laboratory Results Group A Strep Rapid Negative (Negative) 03/25/25 11:20 No radiology studies performed this visit Discharge Plan Discharge Patient Disposition: Home Clinical Impression: Pharyngitis Qualifiers: Pharyngitis/tonsillitis etiology: unspecified etiology Qualified Code(s): J02.9 - Acute pharyngitis, unspecified Condition: Stable Prescriptions: New prednisone 10 mg tablets,dose pack 10 mg PO DIRECTED Qty: 21 0RF Rx Instructions: see taper instructions 6 tablets on day 1, 5 tablets on day 2, 4 tablets on day 3, 3 tablets on day 4, 2 tablets on day 5, and 1 tablet a day 6. P.o. No Action trazodone 100 mg tablet 100 mg PO .HS 30 Days Qty: 30 1RF quetiapine 50 mg tablet extended release 24 hr 100 mg PO BEDTIME 30 Days Qty: 60 1RF hydroxyzine pamoate 25 mg capsule 50 mg PO Q6H PRN (Reason: Anxiety) 30 Days Qty: 120 1RF fluoxetine 20 mg capsule 20 mg PO DAILY 30 Days Qty: 30 1RF bupropion HCl [Wellbutrin XL] 300 mg tablet extended release 24 hr 300 mg PO QAM 30 Days Qty: 30 1RF bupropion HCl 150 mg tablet extended release 24 hr 150 mg PO DAILY 30 Days Qty: 30 1RF Rx Instructions: Take with 300 mg tab for 450 mg daily total methylphenidate HCl 10 mg tablet 10 mg PO TID 30 Days Qty: 90 0RF diclofenac sodium 75 mg tablet,delayed release (DR/EC) 75 mg PO Q12H PRN (Reason: pain) Qty: 20 0RF Discharge Orders: Discharge ED (Routine); Ordered 03/25/25 Ordered By: Usman Sams Patient Instructions: Patient Portal & Kirsten Instructions Activity Restrictions/Additional Instructions: Viral Pharyngitis Discharge Instructions Diagnosis: You have been diagnosed with viral pharyngitis (a viral throat infection). This is a common condition that will get better on its own without antibiotics. What to Expect: - Your symptoms will typically be worst in the first 3 days, then gradually improve - Most sore throats resolve within 7-10 days - You do not need antibiotics because antibiotics do not work against viruses and may cause side effects How to Feel Better at Home: Pain and Fever Relief: - Take lnux-etl-subqrpe pain relievers such as ibuprofen (Advil, Motrin) or acetaminophen (Tylenol) as directed on the package - Use throat lozenges containing menthol or mild numbing medicine for temporary relief Other Comfort Measures: - Get plenty of rest and drink adequate fluids - Gargle with warm salt water (mix 1/4 to 1/2 teaspoon of salt in 8 ounces of warm water) - Use a humidifier in your room if the air is dry When to Seek Further Care: Contact your doctor or return to the emergency department if you develop: - Difficulty swallowing or breathing - Drooling - Severe neck pain, tenderness, or swelling - Symptoms that worsen after 3-4 days or last longer than 10 days - High fever that does not improve with medication - Severe pain that is not relieved by [id number]-[id number] medications Important Reminders: - Viral pharyngitis is contagious. Wash your hands frequently and avoid close contact with others until you feel better - Do not share drinks, utensils, or personal items - Cover your mouth and nose when coughing or sneezing Follow-Up: No routine follow-up is needed unless your symptoms worsen or do not improve as expected. Print Language: [place] Coding Level of Care Code ED General Utility Worker for Yessenia Pettit
[2025-03-25 11:31] LABS: Rapid Strep A Test Negative (Negative)
== END 2025-03-25 11:50 | disposition home or self-care (01) ==
PROVIDERS: Emergency Provider Physician Assistant
DX: J02.9 Acute pharyngitis, unspecified (principal)
CPT/HCPCS: 87081; 87880; 96372; 99284; J1100